=== PATIENT | female | born 1990 | race Hispanic/Latino ===

== ENCOUNTER 2025-03-22 09:39 | Inpatient (IN) | payer OTHER ==
[~2025-03-22] VITALS: Ht 162.6 cm; Wt 81.6 kg
[2025-03-22 10:09] VITALS: TEMP 98.2
[2025-03-22 11:40] LABS: BASOPHILS % 0.2 % (0.0-1.0); EOSINOPHILS % 0.6 % (0.0-6.0); LYMPHOCYTES % 9.6 % (18.0-39.1); MONOCYTES % 7.6 % (4.4-11.3); NEUTROPHILS % 81.6 % (38.7-80.0); RED CELL DISTRIBUTION WIDTH 12.5 % (11.7-14.4)
[2025-03-22] MEDS: SODIUM CHLORIDE 0.9% 1000ML 2,450 ML IV SCH (11:43)
[2025-03-22 11:56] LABS: INR 0.91
[2025-03-22] MEDS: Morphine 4mg INJECTION 4 MG/ML INJ IV ONE ×2 (12:02→13:15)
[2025-03-22] MEDS: Vancomycin IV 1 GM in SODIUM CHLORIDE 0.9% 250ML 250 ML IV ONE (12:02)
[2025-03-22 12:03] LABS: EST GLOMERULAR FILTRATION RATE 93.0 ML/MIN (>=60)
[2025-03-22] MEDS: INSULIN REGULAR, HUMAN 100 UNIT/1 ML IV ONE (12:03)
[2025-03-22] MEDS ORDERED: IOPAMIDOL 370 MG/ML 100 ML INFUS..BTL INJ ONE (12:18)
[2025-03-22 12:29] LABS: LEUKOCYTE ESTERASE ,URINE NEGATIVE (NEGATIVE)
[2025-03-22 12:30] LABS: EPITHELIAL CELLS,URINE MODERATE /LPF; PROTEIN,URINE DIPSTICK NEGATIVE (NEGATIVE); URINE UROBILINOGEN 0.2 mg/dL (0.2 - 1); WBC,URINE (MAN) 0-5 /HPF (0-5)
[2025-03-22] MEDS: KETOROLAC TROMETHAMINE 30 MG/ML VIAL IV STA (13:14)
[2025-03-22] MEDS: MECLIZINE HCL 12.5 MG TAB PO ONE (13:32)
[2025-03-22 15:30] VITALS: PULSE 79; RESP 18
[2025-03-22] MEDS ORDERED: DEXTROSE 50% SYRINGE 50 ML IV PRN (17:15)
[2025-03-22] MEDS: ONDANSETRON HCL INJ 2MG/ML 2ML 2 MG/ML VIAL IV PRN (17:31)
[2025-03-22] MEDS: Morphine 4mg INJECTION 4 MG/ML INJ IV PRN (17:31)
[2025-03-22 18:35] VITALS: BP 119/83; PULSE 78; RESP 18; TEMP 97.6; O2SAT 97
[2025-03-22] MEDS: FLUCONAZOLE 100 MG TAB PO SCH (19:18)
[2025-03-22 20:00] VITALS: BP 113/62; PULSE 80; RESP 18; TEMP 97.7; O2SAT 100
[2025-03-22] MEDS: INSULIN LISPRO 100 UNIT/1 ML 3ML VIAL SQ SCH (22:07)
[2025-03-22 22:45] VITALS: PULSE 81; RESP 16; O2SAT 97
[2025-03-23] VITALS (8 sets, daily range): BP systolic 97–124; BP diastolic 56–82; PULSE 71–90; RESP 16–19; TEMP 97.6–98.5; O2SAT 95–100
[2025-03-23 05:40] LABS: BASOPHILS % 0.2 % (0.0-1.0); EOSINOPHILS % 1.8 % (0.0-6.0); LYMPHOCYTES % 18.5 % (18.0-39.1); MONOCYTES % 9.4 % (4.4-11.3); NEUTROPHILS % 69.7 % (38.7-80.0); RED CELL DISTRIBUTION WIDTH 12.4 % (11.7-14.4)
[2025-03-23 06:03] LABS: CHOL/HDL RATIO 4.6 (3.0-3.6); EST GLOMERULAR FILTRATION RATE 118.0 ML/MIN (>=60); LDL CHOLESTEROL 113.0 MG/DL (60-130)
[2025-03-23] MEDS: Morphine 4mg INJECTION 4 MG/ML INJ IV PRN (06:47)
[2025-03-23] MEDS ORDERED: FENTANYL CITRATE/PF 100MCG/2 ML INJ ONE (08:06)
[2025-03-23] MEDS ORDERED: SEVOFLURANE INHAL SOLN 250 ML PEN BTL ONE (08:06)
[2025-03-23] MEDS ORDERED: ROCURONIUM BROMIDE 1 ML IV ONE (08:07)
[2025-03-23] MEDS ORDERED: LIDOCAINE HCL 2% LOCAL INJ 5 ML SDV VIAL INJ ONE (08:07)
[2025-03-23] MEDS ORDERED: PROPOFOL IV EMULSION 10 MG/ML 20 ML VIAL ONE (08:07)
[2025-03-23] MEDS ORDERED: SUCCINYLCHOLINE CHLORIDE 20 MG/ML 10ML VIAL ONE (08:32)
[2025-03-23] MEDS ORDERED: SUGAMMADEX SODIUM 200 MG/2 ML VIAL IV ONE ×2 (08:42→08:54)
[2025-03-23] MEDS ORDERED: HYDROMORPHONE 2MG/ML ONE (08:43)
[2025-03-23] MEDS ORDERED: Morphine 10mg syringe 10 MG/ML INJ ONE (08:46)
[2025-03-23] MEDS ORDERED: DEXAMETHASONE SOD PHOS INJ 4 MG/ML SDV ONE (08:49)
[2025-03-23] MEDS ORDERED: ONDANSETRON HCL INJ 2MG/ML 2ML 2 MG/ML VIAL ONE (08:49)
[2025-03-23] MEDS ORDERED: METOCLOPRAMIDE HCL 10 MG/2ML VIAL ONE (08:49)
[2025-03-23] MEDS ORDERED: KETOROLAC TROMETHAMINE 30 MG/ML VIAL ONE (08:49)
[2025-03-23] MEDS: ONDANSETRON HCL INJ 2MG/ML 2ML 2 MG/ML VIAL IV PRN (11:49)
[2025-03-23] MEDS: PIPERACILLIN/TAZOBACTAM 3.375 GM VIAL ONE (13:36)
[2025-03-23] MEDS: HYDROCODONE/APAP 5MG-325MG TAB PO PRN (15:02)
[2025-03-23] MEDS: MECLIZINE HCL 12.5 MG TAB PO ONE (16:47)
[2025-03-24 04:54] VITALS: BP 104/67; PULSE 71; RESP 16; TEMP 98.6; O2SAT 100
[2025-03-24 05:40] LABS: BASOPHILS % 0.2 % (0.0-1.0); EOSINOPHILS % 1.3 % (0.0-6.0); LYMPHOCYTES % 26.7 % (18.0-39.1); MONOCYTES % 9.2 % (4.4-11.3); NEUTROPHILS % 62.1 % (38.7-80.0); RED CELL DISTRIBUTION WIDTH 12.3 % (11.7-14.4)
[2025-03-24 06:10] LABS: EST GLOMERULAR FILTRATION RATE 118.0 ML/MIN (>=60)
[2025-03-24 08:00] VITALS: BP 104/67; PULSE 71; RESP 16; TEMP 98.6; O2SAT 100
[2025-03-24] MEDS: METFORMIN HCL 500 MG TAB PO SCH (08:00)
[2025-03-24 09:27] VITALS: BP 110/68; PULSE 65; RESP 18; TEMP 97.2; O2SAT 100
[2025-03-24 11:53] VITALS: BP 102/61; PULSE 66; RESP 18; TEMP 97; O2SAT 100
[2025-03-24 16:53] VITALS: BP 106/59; PULSE 70; RESP 18; TEMP 97.3; O2SAT 100
[2025-03-24] MEDS: DOCUSATE SODIUM 100 MG CAP PO SCH (18:21)
[2025-03-24 20:00] VITALS: BP 106/75; PULSE 71; RESP 20; TEMP 98.6; O2SAT 100
[2025-03-24] MEDS: PIPERACILLIN/TAZOBACTAM 3.375 GM VIAL ONE ×2 (21:45)
[2025-03-24] MEDS: Morphine 2mg Syringe 2 MG/ML SYR ONE (21:46)
[2025-03-24] MEDS: FLUCONAZOLE 100 MG TAB ONE (21:46)
[2025-03-24] MEDS: Vancomycin IV 1 GM in SODIUM CHLORIDE 0.9% 250ML 250 ML IV SCH (21:51)
[2025-03-25] VITALS (7 sets, daily range): BP systolic 92–116; BP diastolic 58–89; PULSE 65–89; RESP 18–20; TEMP 97.8–98.4; O2SAT 92–100
[2025-03-25 05:33] LABS: BASOPHILS % 0.3 % (0.0-1.0); EOSINOPHILS % 1.9 % (0.0-6.0); LYMPHOCYTES % 38.5 % (18.0-39.1); MONOCYTES % 7.8 % (4.4-11.3); NEUTROPHILS % 50.8 % (38.7-80.0); RED CELL DISTRIBUTION WIDTH 12.3 % (11.7-14.4)
[2025-03-25 06:15] LABS: EST GLOMERULAR FILTRATION RATE 118.0 ML/MIN (>=60)
[2025-03-25] MEDS: PANTOPRAZOLE SOD 40 MG TABEC PO SCH (09:41)
[2025-03-25] MEDS: Morphine 2mg Syringe 2 MG/ML SYR IV PRN (16:54)
[2025-03-26] VITALS: BP 102/63; PULSE 66; RESP 20; TEMP 98; O2SAT 100
[2025-03-26 04:00] VITALS: BP 108/75; PULSE 66; RESP 20; TEMP 98; O2SAT 100
[2025-03-26 07:58] VITALS: BP 106/70; PULSE 68; RESP 18; TEMP 97; O2SAT 100
[2025-03-26 08:30] VITALS: BP 106/70; PULSE 68; RESP 18; TEMP 97; O2SAT 100
[2025-03-26 12:14] VITALS: BP 101/61; PULSE 60; RESP 18; TEMP 97; O2SAT 98
[2025-03-26] MEDS ORDERED: DIFLUCAN100 MG PO (12:33)
[2025-03-26] MEDS ORDERED: METFORMIN HCL500 MG PO (12:52)
[2025-03-26] MEDS ORDERED: DOXYCYCLINE HY100 MG PO (12:55)
[2025-03-26] MEDS ORDERED: ACETAMINOPHEN-1 EAC4 PO (15:16)
== END 2025-03-26 13:34 | disposition home or self-care (01) | DRG 603 ==
LOC: ER 09:51 → ERHOLD 15:26 → ER 16:15 → MED/SURG 16:15
PROVIDERS: ADMIT Internal Medicine; ATTEND Internal Medicine
PROC: 0J990ZZ Drainage of Buttock Subcutaneous Tissue and Fascia, Open Approach (ICD-10-PCS; principal; 2025-03-23 08:36)
DX: L02.31 Cutaneous abscess of buttock (principal); L03.317 Cellulitis of buttock; B37.31 Acute candidiasis of vulva and vagina; E11.65 Type 2 diabetes mellitus with hyperglycemia; I10 Essential (primary) hypertension; E78.5 Hyperlipidemia, unspecified; E86.0 Dehydration; T38.3X6A Underdosing of insulin and oral hypoglycemic [antidiabetic] drugs, initial encounter; Z79.84 Long term (current) use of oral hypoglycemic drugs; Z91.81 History of falling
CPT/HCPCS: 36415; 72193; 80048; 80053; 80061; 81001; 82948; 83036; 83605; 84443; 84702; 85025; 85610; 85730; 87040; 87071; 87075; 87186; 87205; 93005; 94799; 99284; J0330; J1100; J1171; J1885; J2003; J2270; J2405; J2470; J2543; J2765; J7050; Q9967